=== PATIENT | female | born 1990 | race Caucasian/White ===

== ENCOUNTER 2016-11-07 22:13 | Emergency (ER) | payer OTHER ==
[2016-11-07] MEDS ORDERED: ONDANSETRON 4 MG/2 ML VIAL ONE (22:47)
[2016-11-07] MEDS ORDERED: HYDROmorphONE/DILAUDID 1 MG/ML SYR ONE (22:47)
[2016-11-07 23:27] LABS: % IMMATURE GRANULYOCYTES 0.5 % (0.0-1.1); ADD DIFF? NO; ADD MORPH? NO; ADD SCAN? NO; ATYPICAL LYMPHOCYTE FLAG 0 (0-99); FRAGMENT RBC FLAG 0 (0-99); HEMATOCRIT 44.2 % (38.0-47.0); HEMOGLOBIN 15.6 g/dL (12.6-16.3); LEFT SHIFT FLG 0 (0-99); LIPEMIA HEMOLYSIS FLAG 90 (0-99); MEAN CELL HEMOGLOBIN 32.3 pg (27.9-34.1); MEAN CELL HEMOGLOBIN CONCENTR. 35.3 g/dL (32.4-36.7); MEAN CELL VOLUME 91.5 fL (81.5-99.8); MEAN PLATELET VOLUME 10.2 fL (8.7-11.7); PLATELET CLUMPS FLAG 0 (0-99); PLATELET COUNT 356 10^3/uL (150-400); RED BLOOD CELL COUNT 4.83 10^6/uL (4.18-5.33); RED CELL DISTRIBUTION WIDTH 12.1 % (11.5-15.2)
[2016-11-07] MEDS ORDERED: NS 1,000 ML IV ONE (23:29)
[2016-11-07] MEDS ORDERED: ONDANSETRON 4 MG/2 ML VIAL IVP ONE (23:29)
[2016-11-07] MEDS ORDERED: HYDROmorphONE/DILAUDID 1 MG/ML SYR IVP ONE (23:30)
[2016-11-07 23:50] LABS: COLOR YELLOW; LEUKOCYTE ESTERASE,URINE TRACE (NEGATIVE); NITRITE,URINE NEGATIVE (NEGATIVE)
[2016-11-07 23:54] LABS: ALANINE AMINOTRANSFERASE 28 IU/L (9-52); ALBUMIN 4.6 g/dL (3.5-5.0); ALKALINE PHOSPHATASE 50 IU/L (38-126); ANION GAP 13 mEq/L (8-16); ASPARTATE AMINOTRANSFERASE 27 IU/L (14-46); BILIRUBIN-CONJUGATED 0.4 mg/dL (0.0-0.5); BILIRUBIN-UNCONJUGATED 0.6 mg/dL (0.0-1.1); CALCIUM 9.8 mg/dL (8.5-10.4); CARBON DIOXIDE 21 mEq/l (22-31); CHLORIDE 105 mEq/L (97-110); CREATININE 0.8 mg/dL (0.6-1.0); GLOMERULAR FILTRATION RATE > 60; GLUCOSE 132 mg/dL (70-100); POTASSIUM 4.3 mEq/L (3.5-5.2); SODIUM 139 mEq/L (134-144); TOTAL PROTEIN 7.8 g/dL (6.3-8.2)
[2016-11-07 23:55] LABS: BACTERIA TRACE /hpf (NONE SEEN); MUCUS 2+ /lpf (NONE-1+); RBC,URINE 15-25 /hpf (0-3)
[2016-11-08] MEDS ORDERED: ONDANSETRON 4 MG/2 ML VIAL IVP ONE (00:31)
[2016-11-08 00:33] VITALS: BP 108/68; PULSE 78; RESP 16; TEMP 98.8; O2SAT 98
[2016-11-08] MEDS ORDERED: ONDANSETRON 4MG PREPACK#2 BTL TAKEHOME ONE (00:45)
--- NOTE | 2016-11-08 00:45 | EDPHY ---
H & P Stated Complaint: severe N and V and D since 1930 tonight, stomach pain Time Seen by Provider: 11/07/16 22:46 HPI/ROS: HPI The patient presents with abdominal pain, which is in her upper abdomen and is dull in nature and diffuse without any radiation which began at about 6:00 p.m. tonight. Shortly thereafter, she developed multiple episodes of nonbloody nonbilious emesis with which continued throughout the evening. She did have some watery diarrhea associated with this. She had a similar episode about 4 days ago which improved on its own. Her last meal was at about 11:30 a.m. today. About 2 months ago, she had a colonoscopy for perform for diarrhea which demonstrated polyps only. After this, she was started on probiotics with improvement of her symptoms. She denies any fever, back pain, urinary symptoms, vaginal discharge. REVIEW OF SYSTEMS Constitutional: No fever, no chills. Eyes: No discharge. ENT: No sore throat. Cardiovascular: No chest pain, no palpitations. Respiratory: No cough, no shortness of breath. Gastrointestinal: See HPI Genitourinary: No hematuria. Musculoskeletal: No back pain. Skin: No rashes. Neurological: No headache. PMHx: Diarrhea recently evaluated with a colonoscopy, no diabetes, no hypertension PHYSICAL General Appearance: Alert, no distress Eyes: Pupils equal and round no pallor or injection ENT, Mouth: Mucous membranes moist Respiratory: There are no retractions, lungs are clear to auscultation Cardiovascular: Regular rate and rhythm Gastrointestinal: Abdomen is soft and non-tender, no masses, bowel sounds normal Neurological: A&O, moves all extremities Skin: Warm and dry, no rashes Musculoskeletal: Neck is supple non tender Extremities: symmetrical, full range of motion Psychiatric: Patient is oriented X 3, there is no agitation Source: Patient Exam Limitations: No limitations - Personal History LMP (Females 10-55): 22-28 Days Ago Current Tetanus/Diphtheria Vaccine: Yes Current Tetanus Diphtheria and Acellular Pertussis (TDAP): Yes Tetanus Vaccine Date: 2010 - Medical/Surgical History Hx Asthma: No Hx Chronic Respiratory Disease: No Hx Diabetes: No Hx Cardiac Disease: No Hx Renal Disease: No Hx Cirrhosis: No Hx Alcoholism: No Hx HIV/AIDS: No Hx Splenectomy or Spleen Trauma: No Other PMH: bilateral knee sx, R shoulder sx - Social History Smoking Status: Never smoked Drug Use: None Constitutional: Initial Vital Signs Temperature (C) 36.7 C 11/07/16 22:15 Heart Rate 93 11/07/16 22:15 Respiratory Rate 14 11/07/16 22:15 Blood Pressure 123/82 H 11/07/16 22:15 O2 Sat (%) 99 11/07/16 22:15 O2 Delivery Mode Room Air Allergies/Adverse Reactions: acetaminophen [From Percocet] Allergy (Verified 06/05/10 19:48) Rash oxycodone HCl [From Percocet] Allergy (Verified 06/05/10 19:48) Rash Home Medications: Medication Instructions Recorded Ondansetron Odt [Zofran Odt 4 mg 4 mg PO Q4 PRN #10 tab 11/08/16 (*)] Medical Decision Making Procedures: Bedside right upper quadrant limited abdominal Ultrasound- performed and interpreted by me. Indication: Nausea and vomiting Findings: Gallbladder is minimally distended, no gallbladder wall thickening, no pericholecystic fluid, no gallstones Impression: No sonographic evidence of cholecystitis Differential Diagnosis: This is a 26-year-old healthy female who presents with several hours of dull upper abdominal pain associated with nausea, vomiting, diarrhea. On exam, she has normal vital signs as inter abdominal exam is benign. Differential diagnosis includes viral gastroenteritis, toxin mediated enterocolitis, gastritis, biliary colic, cholecystitis. In the emergency room the patient was started on IV fluids and Zofran with improvement in her symptoms. Basic labs were checked which did reveal a leukocytosis. This could be due to infectious cause of her symptoms verses stress response with de margination. UA appeared contaminated, upon further history, the patient denies any irritative voiding symptoms. A bedside right upper quadrant ultrasound was also performed and was negative for any biliary disease. She was able to tolerate fluids by mouth without difficulty. Given her well appearance, she was discharged home with plan for follow up with her primary care doctor or vocational psychologist in the next few days if she is not better. Otherwise, I have advised her to return to the emergency room if she has any worsening pain or for diarrhea becomes bloody. She is in agreement with this plan. - Data Points Laboratory Results: Laboratory Results 11/07/16 23:00 11/07/16 23:00 11/07/16 11/07/16 23:30 23:00 WBC 19.78 H 10^3/uL (3.80-9.50) RBC 4.83 10^6/uL (4.18-5.33) Hgb 15.6 g/dL (12.6-16.3) Hct 44.2 % (38.0-47.0) MCV 91.5 fL (81.5-99.8) MCH 32.3 pg (27.9-34.1) MCHC 35.3 g/dL (32.4-36.7) RDW 12.1 % (11.5-15.2) Plt Count 356 10^3/uL (150-400) MPV 10.2 fL (8.7-11.7) Neut % (Auto) 85.7 H % (39.3-74.2) Lymph % (Auto) 6.0 L % (15.0-45.0) [place] % (Auto) 7.2 % (4.5-13.0) Eos % (Auto) 0.4 L % (0.6-7.6) Baso % (Auto) 0.2 L % (0.3-1.7) Nucleat RBC Rel Count 0.0 % (0.0-0.2) Absolute Neuts (auto) 16.96 H 10^3/uL (1.70-6.50) Absolute Lymphs (auto) 1.18 10^3/uL (1.00-3.00) Absolute Monos (auto) 1.43 H 10^3/uL (0.30-0.80) Absolute Eos (auto) 0.07 10^3/uL (0.03-0.40) Absolute Basos (auto) 0.04 10^3/uL (0.02-0.10) Absolute Nucleated RBC 0.00 10^3/uL (0-0.01) Immature Gran % 0.5 % (0.0-1.1) Immature Gran # 0.10 10^3/uL (0.00-0.10) Sodium 139 mEq/L (134-144) Potassium 4.3 mEq/L (3.5-5.2) Chloride 105 mEq/L (97-110) Carbon Dioxide 21 L mEq/l (22-31) Anion Gap 13 mEq/L (8-16) BUN 17 mg/dL (7-23) Creatinine 0.8 mg/dL (0.6-1.0) Estimated GFR > 60 Glucose 132 H mg/dL (70-100) Calcium 9.8 mg/dL (8.5-10.4) Total Bilirubin 1.0 mg/dL (0.1-1.4) Conjugated Bilirubin 0.4 mg/dL (0.0-0.5) Unconjugated Bilirubin 0.6 mg/dL (0.0-1.1) AST 27 IU/L (14-46) ALT 28 IU/L (9-52) Alkaline Phosphatase 50 IU/L (38-126) Total Protein 7.8 g/dL (6.3-8.2) Albumin 4.6 g/dL (3.5-5.0) Lipase 63.0 IU/L (23-300) Urine Color YELLOW Urine Appearance HAZY Urine pH 5.0 (5.0-7.5) Ur Specific Alpha 1.024 (1.002-1.030) Urine Protein NEGATIVE (NEGATIVE) Urine Ketones 2+ H (NEGATIVE) Urine Blood 1+ H (NEGATIVE) Urine Nitrate NEGATIVE (NEGATIVE) Urine Bilirubin NEGATIVE (NEGATIVE) Urine Urobilinogen NEGATIVE EU (0.2-1.0) Ur Leukocyte Esterase TRACE H (NEGATIVE) Urine RBC 15-25 H /hpf (0-3) Urine WBC 5-10 H /hpf (0-3) Ur Epithelial Cells TRACE /lpf (NONE-1+) Urine Bacteria TRACE H /hpf (NONE SEEN) Urine Mucus 2+ H /lpf (NONE-1+) Urine Glucose NEGATIVE (NEGATIVE) Medications Given: Discontinued Medications Hydromorphone HCl (Dilaudid) 0.5 mg IVP EDNOW ONE Stop: 11/07/16 23:31 Last Admin: 11/07/16 23:00 Dose: 0.5 mg Sodium Chloride (Ns) 1,000 mls @ 0 mls/hr IV EDNOW ONE PRN Reason: Wide Open Stop: 11/07/16 23:30 Last Admin: 11/07/16 23:40 Dose: 1,000 mls Ondansetron HCl (Zofran) 4 mg IVP EDNOW ONE Stop: 11/07/16 23:30 Last Admin: 11/07/16 23:00 Dose: 4 mg Ondansetron HCl (Zofran) 4 mg IVP EDNOW ONE Stop: 11/08/16 00:32 Last Admin: 11/08/16 00:37 Dose: 4 mg Ondansetron HCl (Zofran Odt 4 Mg Prepack#2) 1 btl TAKEHOME EDNOW ONE Stop: 11/08/16 00:46 Last Admin: 11/08/16 01:06 Dose: 1 btl Departure - Departure Disposition: Home, Routine, Self-Care Clinical Impression: Nausea & vomiting Condition: Good Instructions: Acute Nausea and Vomiting (ED) Additional Instructions: Please return to the emergency room if your abdominal pain worsens or travels to the right lower quadrant. You should also return if your vomiting continues and you are not able to take any fluids by mouth. Please follow-up with your primary care doctor or your vocational psychologist in the next few days if your symptoms continue. Referrals: Bam Khoury MD [Primary Care Provider] - As per Instructions Prescriptions: Ondansetron Odt [Zofran Odt 4 mg (*)] 4 mg PO Q4 PRN #10 tab PRN Reason: Nausea/Vomiting, Can'T Take Po
== END 2016-11-08 01:04 | disposition home or self-care (01) ==
DX: R11.2 Nausea with vomiting, unspecified (principal)
CPT/HCPCS: 96374; J1170; J2405